=== PATIENT | male | born 1980 | race Caucasian/White ===

== ENCOUNTER 2020-01-13 17:10 | Emergency (ER) | payer MEDICAID, SELFPAY ==
[2020-01-13 17:18] VITALS: BP 118/87; PULSE 119; RESP 18; TEMP 37.5; O2SAT 96; BMI 23.9
--- NOTE | 2020-01-13 17:28 | XR_ITS ---
PROCEDURE: XR FINGER RT MIN 2V Patient Age:39Y CLINICAL INDICATION: R ring finger, open area r/t crush injury COMPARISON: No exams were available for comparison FINDINGS: Attention is directed to the 4th finger/ring finger of right hand.. Radiopaque stippled foreign body material extending anteriorly at the distal 4th finger. This extends in an oblique fashion to the palmar, radial aspect of the distal 4th finger as seen best on the lateral view.-associated soft tissue disruption and significant laceration associated off from the crush injury. However the osseous structures at distal tuft 4th finger appear to remain intact with no definitive fracture or disruption nor fragmentation. The radiopaque material I appears to be foreign body material not bone fragment but With this the distal middle and proximal phalanx 4th finger are intact Remaining fingers appear intact and unremarkable. Metacarpals and carpals intact. Spaces well maintained. No erosive changes but Cone down detailed views of 4th finger in follow-up suggested IMPRESSION: Foreign body material and lacerations seen at the distal 4th finger-from crush injury. (This radiopaque foreign body material, aligns in a ' row' extending along course of laceration on the lateral view) However no associated definitive fracture of distal tuft/distal phalanx nor remaining portions 4th finger otherwise identified Dictated by: Josh Tomlin MD 01/14/2020 14:13 Electronically signed by Johs Tomlin MD in [place] 01/14/2020 14:13
--- NOTE | 2020-01-13 18:11 | HMH.EDEXTP ---
ED Disposition Clinical Impression: Laceration Disposition: Home, Self-Care Condition on Discharge: Good Referrals: Yamileth Juarez APRN [Primary Care Provider] - - Critical Care Critical Care Time: No Attestation: On 01/13/20, the high probability of a clinically significant, sudden or life threatening deterioration of the following system(s) required my full and direct attention, intervention and personal management. The time I documented below is in addition to time spent performing reported procedures but includes the following listed in this critical care notation. Medical Decision Making - Medical Records Medical records reviewed: Yes: I reviewed the patient's medical records. - Jorge Inquiry Pt receiving controlled substance: No Vital Signs: 01/13/20 17:18 Temperature 99.5 F Temperature Source Oral Pulse Rate [Right Radial] 119 H Respiratory Rate 18 Blood Pressure [Right Arm] 118/87 Blood Pressure Mean [Right Arm] 97 Blood Pressure Source [Right Arm] Automatic Cuff Blood Pressure Position [Right Arm] Sitting 02 Sat by Pulse Oximetry 96 Oxygen Delivery Method Room Air - Lab Data Lab results reviewed: Yes: I reviewed the patient's lab results. Orders (Tests/Meds): ED MEDICATIONS Discontinued Medications Generic Name Dose Route Start Last Admin Trade Name Freq PRN Reason Stop Dose Admin Tetanus/Reduced Diphtheria/Acell Pertussis 0.5 ml 01/13/20 17:28 01/13/20 17:54 Adacel Tdap 0.5ml Syringe IM 01/13/20 17:29 0.5 ml .ONCE ONE Administration ORDERS Category Date Time Status XR finger RT min 2V Stat Exams 01/13/20 17:28 Taken - Radiology Data #1 Image(s): Hand Preliminary Findings: Normal/NAD Extremity Problem HPI - General Chief complaint: Extremity Injury, Upper Stated complaint: AO 1610 Lac to R gabd Ring finger Time Seen by Provider: 01/13/20 18:11 Mode of Arrival: Ambulatory Source of Information: Patient Limitations: No Limitations Description of Symptoms (Recalled from ER Triage Doc. by RN): pt has a open areas to R ring finger. Pt reports he smashed his finger between a tractor bucket and a rock. - History of Present Illness HPI Narrative: 39-year-old male comes in with a finger injury. He had his finger smashed between a rock he does have an open laceration on the finger as well and also is swollen. This is on his right index finger. Patient states that pain is manageable. Things that exacerbate this pain is movement. She denies any other trauma patient denies any other symptoms. MD Complaint: extremity pain Onset (ago): minute(s) Consistency: constant Location: right Severity scale (1-10): 4 Quality: aching Radiation: none Relieving factors: nothing Exacerbating factors: nothing - Related Data Allergies Allergy/AdvReac Type Severity Reaction Status Date / Time No Known Allergies Allergy Unverified 08/18/17 14:34 [facility] History - Hepatitis A Screen Drug use history?: No High risk sexual behaviors?: No History of sexually transmitted infection?: No Currently employed?: No Childcare worker?: No Do you have indoor plumbing?: No Do you have electricity?: Yes Attestation statement:: This patient has been screened for Hepatitis A risk factors. I have reviewed the patient's past medical history: Yes Medical History: Reports:: Diabetes Mellitus Type 1 - Social History Smoking Status: Current every day smoker Tobacco Type: cigarettes # Packs/Day (cigarettes): 1 Alcohol Intake: never Occupational Status: employed ROS Obtained: Yes All systems reviewed & no additional complaints - Constitutional Constitutional: Reports system reviewed and no additional complaints, except as docu - Eyes Eyes: Reports system reviewed and no additional complaints, except as docu - ENT Ears, Nose, Mouth, and Throat: Reports system reviewed and no additional complaints, except as docu - Cardiovascular Cardiovascular: Reports s
[2020-01-13 18:37] VITALS: BP 118/87; PULSE 119; RESP 18; TEMP 37.5; O2SAT 96
== END 2020-01-13 18:38 | disposition home or self-care (01) ==
PROVIDERS: Emergency Provider Family Medicine; PCP Nurse Practitioner Family
DX: S61.210A Laceration without foreign body of right index finger without damage to nail, initial encounter (principal); W30.89XA Contact with other specified agricultural machinery, initial encounter; Y92.73 Farm field as the place of occurrence of the external cause; Z23 Encounter for immunization
CPT/HCPCS: 12001; 73140; 90471; 90715; 99282

== ENCOUNTER 2020-01-15 00:46 | Emergency (ER) | payer MEDICAID, SELFPAY ==
[2020-01-15 00:58] VITALS: BP 120/71; PULSE 97; RESP 16; TEMP 37.1; O2SAT 98; BMI 23.9
--- NOTE | 2020-01-15 01:34 | HMH.EDWNDL ---
ED Disposition Clinical Impression: Cellulitis Qualifiers: Site of cellulitis: extremity Site of cellulitis of extremity: finger Laterality: right Qualified Code(s): L03.011 - Cellulitis of right finger Disposition: Home, Self-Care Condition on Discharge: Good Instructions: Cellulitis Additional Instructions: see pcp for follow up Prescriptions: Mupirocin [Bactroban 2% Ointment 22gm tube] 1 applicatio TP BID 10 Days #1 tube Transmission Status: Pending to [facility] cephALEXin [Keflex 500mg Cap] 500 mg PO TID #30 cap Transmission Status: Pending to [facility] Referrals: Yamileth Juarez APRN [Primary Care Provider] - - Critical Care Critical Care Time: No Attestation: On 01/15/20, the high probability of a clinically significant, sudden or life threatening deterioration of the following system(s) required my full and direct attention, intervention and personal management. The time I documented below is in addition to time spent performing reported procedures but includes the following listed in this critical care notation. Medical Decision Making - Medical Records Medical records reviewed: Yes: I reviewed the patient's medical records. - Jorge Inquiry Pt receiving controlled substance: No Vital Signs: 01/15/20 00:58 Temperature 98.7 F Temperature Source Oral Pulse Rate [Right] 97 H Respiratory Rate 16 Blood Pressure [Right Arm] 120/71 Blood Pressure Mean [Right Arm] 87 02 Sat by Pulse Oximetry 98 Oxygen Delivery Method Room Air Wound/Laceration HPI - General Chief Complaint: Extremity Injury, Upper Stated Complaint: Inj rt hand ring finger reopened Time Seen by Provider: 01/15/20 01:20 Mode of Arrival: Ambulatory Source of Information: Patient, Spouse, Medical Record Limitations: No Limitations Description of Symptoms (Recalled from ER Triage Doc. by RN): Pt here thursday and got his right ring finger glued after getting it pinched between a tractor bucket, finger broke back open tonight - History of Present Illness HPI narrative: acute injury rt ring finger - was glued and now swollen and tender Onset (ago): day(s) Extremity Location: Right: hand Place: home Patient tetanus UTD: Yes Context: accidental Associated symptoms: none - Related Data Home Medications Medication Instructions Recorded Confirmed Insulin Aspart [Novolog] 1 dose SQ QID 01/15/20 01/15/20 Insulin Detemir [Levemir 17 units SQ BID 01/15/20 01/15/20 100units/mL 3mL flexpen] Levothyroxine Sodium 100 mcg PO DAILY 01/15/20 01/15/20 [Levothyroxine 100mcg (0.1MG) Tab] lisinopriL [Lisinopril 5mg 5 mg PO DAILY 01/15/20 01/15/20 Tablet] Previous Rx's Medication Instructions Recorded Mupirocin [Bactroban 2% Ointment 1 applicatio TP BID 10 Days #1 tube 01/15/20 22gm tube] cephALEXin [Keflex 500mg Cap] 500 mg PO TID #30 cap 01/15/20 Allergies Allergy/AdvReac Type Severity Reaction Status Date / Time No Known Allergies Allergy Unverified 08/18/17 14:[address] [facility] History - Hepatitis A Screen Drug use history?: No High risk sexual behaviors?: No History of sexually transmitted infection?: No Currently employed?: No Childcare worker?: No Do you have indoor plumbing?: Yes Do you have electricity?: Yes Attestation statement:: This patient has been screened for Hepatitis A risk factors. I have reviewed the patient's past medical history: Yes Medical History: Reports:: Diabetes Mellitus Type 1 - Social History Smoking Status: Current every day smoker Tobacco Type: cigarettes # Packs/Day (cigarettes): 2 Alcohol Intake: never Occupational Status: employed ROS Obtained: Yes All systems reviewed & no additional complaints - Constitutional Constitutional: Denies fever(s) - Eyes Eyes: Denies change in vision - ENT Ears, Nose, Mouth, and Throat: Denies sore throat - Cardiovascular Cardiovascular: Denies chest pain - Respiratory Respiratory: No cough
[2020-01-15 01:50] VITALS: BP 122/68; PULSE 84; RESP 14; TEMP 37.1; O2SAT 98
== END 2020-01-15 01:53 | disposition home or self-care (01) ==
PROVIDERS: Emergency Provider Emergency Medicine; PCP Nurse Practitioner Family
DX: L03.011 Cellulitis of right finger (principal); E10.9 Type 1 diabetes mellitus without complications; F17.210 Nicotine dependence, cigarettes, uncomplicated
CPT/HCPCS: 99281